=== PATIENT | male | born 1940 | race Caucasian/White ===

== ENCOUNTER 2016-04-30 10:40 | Inpatient (IN) | payer OTHER, BC ==
[~2016-04-30] VITALS: Ht 185.4 cm; Wt 102.5 kg
[2016-04-30] VITALS (18 sets, daily range): BP systolic 107–163; BP diastolic 63–109
[~2016-04-30 10:40] MED LIST: "\\\"STATIN\\\""; AMBIEN10 M1 PO; COUMADIN,JANTOVE2 MG PO; ENDOCET 7.5-321 EACH PO; HYDROCHLOROTHIA25 MG PO; LANOXIN,DIGIT0.25 MG PO; LEVOTHYROXINE125 MCG PO; LYRICA; METFORMIN HCL500 M1 PO; PANTOPRAZOLE SO40 MG PO; PRADAXA75 MG PO; PRAVASTATIN SOD40 MG PO; PREDNISONE10 M1 PO; PROTONIX40 MG PO; TOPROL XL100 MG PO; TRAMADOL HCL50 MG PO; VALIUM5 MG PO; XARELTO20 MG PO
[2016-04-30 12:12] LABS: HEMATOCRIT 21.5 % (38.0-50.0); MCH 24.9 PG (29.0-34.0); MCHC 29.8 G/DL (30.0-36.0); MCV 83.7 FL (86-99); MEAN PLAT.VOLUME 9.5 uM^3 (9.0-12.4); PLATELET COUNT 291 K/uL (156-360); RBC DIS.WIDTH-CV 15.3 % (11.8-14.6); RBC DIS.WIDTH-SD 44.2 % (39-53); RED BLOOD COUNT 2.57 M/uL (4.00-5.50); WHITE BLOOD COUNT 7.1 K/uL (4.1-10.2)
[2016-04-30 12:13] LABS: CHLORIDE 113 mEq/L (99-109); POTASSIUM 4.3 mEq/L (3.7-5.4); SODIUM 143 mEq/L (136-147)
[2016-04-30 12:14] LABS: GLUCOSE 81 mg/dL (70-99)
[2016-04-30 12:18] LABS: GFR ESTIMATE (CALCULATED) > 59 mL/min/
[2016-04-30 12:19] LABS: UREA NITROGEN (BUN) 20 mg/dL (9-23)
[2016-04-30 12:22] LABS: ANION GAP 9 MEQ/L (2-14)
[2016-04-30 12:24] LABS: TOTAL BILIRUBIN 0.5 mg/dL (0.0-1.0)
[2016-04-30 12:25] LABS: ALKALINE PHOSPHATASE 77 IU/L (3-129)
[2016-04-30 12:43] LABS: TROP-I INTERPRETATION NEGATIVE; TROPONIN-I < 0.01 ng/mL (0.0-0.30)
[2016-04-30 13:40] LABS: MCH 24.1 PG (29.0-34.0); MCHC 29.1 G/DL (30.0-36.0); MCV 82.7 FL (86-99); PLATELET COUNT 314 K/uL (156-360); RBC DIS.WIDTH-CV 15.4 % (11.8-14.6); RBC DIS.WIDTH-SD 43.9 % (39-53); RED BLOOD COUNT 2.66 M/uL (4.00-5.50); WHITE BLOOD COUNT 7.9 K/uL (4.1-10.2)
[2016-04-30] MEDS ORDERED: TOPROL XL50 MG PO (15:11)
[2016-04-30] MEDS ORDERED: GLIMEPIRIDE1 MG PO (15:13)
[2016-04-30] MEDS ORDERED: IRON325 M1 PO (15:14)
[2016-04-30] MEDS ORDERED: POTASSIUM CITR10 MEQ PO (15:14)
[2016-04-30] MEDS ORDERED: FUROSEMIDE20 MG PO (15:14)
[2016-04-30] MEDS ORDERED: CYANOCOBALAM1000 MCG PO (15:15)
[2016-04-30] MEDS ORDERED: ASCORBIC ACID500 M3 PO (15:15)
[2016-04-30] MEDS ORDERED: ASPIR 8181 M1 PO (15:15)
[2016-04-30 20:47] LABS: HEMATOCRIT 22.3 % (38.0-50.0)
[2016-04-30 21:11] LABS: POINT-OF-CARE METER ID UU13113698
[2016-05-01] VITALS (10 sets, daily range): BP systolic 99–136; BP diastolic 55–69
[2016-05-01 05:30] LABS: HEMATOCRIT 26.3 % (38.0-50.0); MCH 25.9 PG (29.0-34.0); MCHC 31.2 G/DL (30.0-36.0); MEAN PLAT.VOLUME 9.6 uM^3 (9.0-12.4); PLATELET COUNT 257 K/uL (156-360); RBC DIS.WIDTH-CV 15.7 % (11.8-14.6); RBC DIS.WIDTH-SD 47.1 % (39-53); RED BLOOD COUNT 3.17 M/uL (4.00-5.50); WHITE BLOOD COUNT 7.3 K/uL (4.1-10.2)
[2016-05-01 09:35] LABS: HEMATOCRIT 26.9 % (38.0-50.0); MCV 82.5 FL (86-99)
[2016-05-01 11:47] LABS: POINT-OF-CARE METER ID UU14174216
[2016-05-01 16:16] LABS: ANION GAP 9 MEQ/L (2-14); CHLORIDE 100 MEQ/L (99-109); GFR ESTIMATE (CALCULATED) 48 mL/min/; SAMPLE HEMOLYSIS CHECK 2; SAMPLE ICTERIC CHECK 0; SAMPLE LIPEMIA CHECK 0; SODIUM 137 MEQ/L (136-147); UREA NITROGEN (BUN) 23 mg/dL (9-23)
[2016-05-01 16:28] LABS: GLUCOSE 113 mg/dL (70-99)
[2016-05-01 17:13] LABS: POINT-OF-CARE METER ID UU14174216
[2016-05-01 20:15] LABS: HEMATOCRIT 27.2 % (38.0-50.0); MCV 82.7 FL (86-99)
[2016-05-02 03:53] VITALS: BP 102/55
[2016-05-02 06:49] LABS: MCH 25.4 PG (29.0-34.0); MCHC 30.7 G/DL (30.0-36.0); MCV 82.6 FL (86-99); MEAN PLAT.VOLUME 9.6 uM^3 (9.0-12.4); PLATELET COUNT 234 K/uL (156-360); RBC DIS.WIDTH-CV 16.2 % (11.8-14.6); RBC DIS.WIDTH-SD 48.5 % (39-53); RED BLOOD COUNT 3.39 M/uL (4.00-5.50); WHITE BLOOD COUNT 6.4 K/uL (4.1-10.2)
[2016-05-02 07:02] VITALS: BP 117/58
[2016-05-02 07:08] LABS: ANION GAP 10 MEQ/L (2-14); CHLORIDE 102 MEQ/L (99-109); GFR ESTIMATE (CALCULATED) 52 mL/min/; GLUCOSE 104 mg/dL (70-99); POTASSIUM 3.8 MEQ/L (3.7-5.4); SAMPLE HEMOLYSIS CHECK 0; SAMPLE ICTERIC CHECK 0; SAMPLE LIPEMIA CHECK 0; SODIUM 139 MEQ/L (136-147); UREA NITROGEN (BUN) 24 mg/dL (9-23)
[2016-05-02 07:48] LABS: POINT-OF-CARE METER ID UU13113781
[2016-05-02 11:34] VITALS: BP 112/51
[2016-05-02 15:23] VITALS: BP 118/57
[2016-05-02 20:00] VITALS: BP 117/59
[2016-05-02 23:31] VITALS: BP 108/49
[2016-05-03] VITALS (7 sets, daily range): BP systolic 108–152; BP diastolic 55–82
[2016-05-03 06:47] LABS: HEMATOCRIT 29.6 % (38.0-50.0); MCH 25.5 PG (29.0-34.0); MCHC 30.4 G/DL (30.0-36.0); MCV 83.9 FL (86-99); MEAN PLAT.VOLUME 9.8 uM^3 (9.0-12.4); PLATELET COUNT 214 K/uL (156-360); RBC DIS.WIDTH-CV 16.4 % (11.8-14.6); RBC DIS.WIDTH-SD 49.6 % (39-53); RED BLOOD COUNT 3.53 M/uL (4.00-5.50); WHITE BLOOD COUNT 6.6 K/uL (4.1-10.2)
[2016-05-03 07:16] LABS: ANION GAP 10 MEQ/L (2-14); CHLORIDE 102 MEQ/L (99-109); GFR ESTIMATE (CALCULATED) 52 mL/min/; GLUCOSE 101 mg/dL (70-99); POTASSIUM 3.9 MEQ/L (3.7-5.4); SAMPLE HEMOLYSIS CHECK 0; SAMPLE ICTERIC CHECK 0; SAMPLE LIPEMIA CHECK 0; SODIUM 140 MEQ/L (136-147); UREA NITROGEN (BUN) 26 mg/dL (9-23)
[2016-05-03 12:02] LABS: POC NON-PRINT COM 1 ND
[2016-05-03 13:05] LABS: POINT-OF-CARE METER ID UU13113698
[2016-05-03 16:20] LABS: POINT-OF-CARE METER ID UU13113781
[2016-05-04 04:54] VITALS: BP 141/73
[2016-05-04 06:47] LABS: HEMATOCRIT 29.4 % (38.0-50.0); MCH 24.5 PG (29.0-34.0); MCHC 29.3 G/DL (30.0-36.0); MCV 83.8 FL (86-99); RBC DIS.WIDTH-CV 16.1 % (11.8-14.6); RBC DIS.WIDTH-SD 49.1 % (39-53); RED BLOOD COUNT 3.51 M/uL (4.00-5.50); WHITE BLOOD COUNT 5.8 K/uL (4.1-10.2)
[2016-05-04 07:00] VITALS: BP 140/78
[2016-05-04 07:13] LABS: ANION GAP 9 MEQ/L (2-14); CHLORIDE 106 MEQ/L (99-109); GFR ESTIMATE (CALCULATED) > 59 mL/min/; GLUCOSE 98 mg/dL (70-99); SAMPLE HEMOLYSIS CHECK 0; SAMPLE ICTERIC CHECK 0; SAMPLE LIPEMIA CHECK 0; SODIUM 140 MEQ/L (136-147); UREA NITROGEN (BUN) 20 mg/dL (9-23)
[2016-05-04 07:44] LABS: MEAN PLAT.VOLUME 9.5 uM^3 (9.0-12.4); PLATELET COUNT 196 K/uL (156-360)
[2016-05-04 08:00] LABS: POINT-OF-CARE USER ID ENVKC36
[2016-05-04 09:27] LABS: POINT-OF-CARE METER ID UU13113781
[2016-05-04 11:11] VITALS: BP 127/68
[2016-05-04 12:16] LABS: POINT-OF-CARE METER ID UU14174216; POINT-OF-CARE USER ID ENVKC36
[2016-05-04 14:58] LABS: POINT-OF-CARE METER ID UU13113819
[2016-05-04 15:41] VITALS: BP 130/72
[2016-05-04] MEDS ORDERED: METOPROLOL SUCC25 MG PO (15:57)
== END 2016-05-04 17:05 | disposition home or self-care (01) | DRG 378 ==
LOC: EME 10:40 → EDOF 17:18 → 4EAST 17:18
PROVIDERS: Emergency Medicine; Hospitalist; Internal Medicine; Physician Assistant
PROC: 30233N1 Transfusion of Nonautologous Red Blood Cells into Peripheral Vein, Percutaneous Approach (ICD-10-PCS; principal; 2016-04-30)
DX: K92.2 Gastrointestinal hemorrhage, unspecified (principal); D62 Acute posthemorrhagic anemia; J98.11 Atelectasis; I50.9 Heart failure, unspecified; I48.2 Chronic atrial fibrillation; I10 Essential (primary) hypertension; E78.5 Hyperlipidemia, unspecified; E11.9 Type 2 diabetes mellitus without complications; I71.4 Abdominal aortic aneurysm, without rupture
CPT/HCPCS: 71020; 71275; 74174; 80048; 80053; 82272; 82948; 83880; 84484; 85014; 85018; 85027; 86850; 86870; 86900; 86901; 86905; 86920; 88305; 93005; 93306; 99281; 99285; C9113; J1815; J1940; J2250; J3010; P9016

== ENCOUNTER 2016-05-31 18:31 | Inpatient (IN) | payer OTHER, BC ==
[~2016-05-31] VITALS: Ht 185.4 cm; Wt 102.0 kg
[~2016-05-31 18:31] MED LIST changes: +ASCORBIC ACID500 M3 PO; +ASPIR 8181 M1 PO; +CYANOCOBALAM1000 MCG PO; +FUROSEMIDE20 MG PO; +GLIMEPIRIDE1 MG PO; +IRON325 M1 PO; +METOPROLOL SUCC25 MG PO; +POTASSIUM CITR10 MEQ PO; +TOPROL XL50 MG PO
[2016-05-31 19:21] LABS: CHLORIDE 111 mEq/L (99-109); POTASSIUM 3.8 mEq/L (3.7-5.4); SODIUM 141 mEq/L (136-147)
[2016-05-31 19:23] LABS: GLUCOSE 80 mg/dL (70-99)
[2016-05-31 19:24] LABS: ANION GAP 10 MEQ/L (2-14)
[2016-05-31 19:27] LABS: GFR ESTIMATE (CALCULATED) > 59 mL/min/
[2016-05-31 19:28] LABS: HEMATOCRIT 27.1 % (38.0-50.0); MCH 21.8 PG (29.0-34.0); MCHC 28.4 G/DL (30.0-36.0); MEAN PLAT.VOLUME 9.4 uM^3 (9.0-12.4); PLATELET COUNT 271 K/uL (156-360); RBC DIS.WIDTH-CV 18.1 % (11.8-14.6); RED BLOOD COUNT 3.53 M/uL (4.00-5.50); UREA NITROGEN (BUN) 16 mg/dL (9-23); WHITE BLOOD COUNT 7.3 K/uL (4.1-10.2)
[2016-05-31 19:29] LABS: MCV 76.8 FL (86-99)
[2016-05-31] MEDS ORDERED: LO-DOSE ASPIRIN81 M1 PO (20:22)
[2016-05-31] MEDS ORDERED: XARELTO20 MG PO (20:22)
[2016-05-31 21:08] LABS: INTER. NORMALIZED RATIO 1.3; PROTHROMBIN TIME 13.5 (9.2-11.2); PTT 32.2 (25-32)
[2016-05-31 21:09] LABS: TOTAL BILIRUBIN 0.7 mg/dL (0.0-1.0)
[2016-05-31 21:10] LABS: ALKALINE PHOSPHATASE 100 IU/L (3-129)
[2016-05-31 21:12] LABS: DIRECT BILIRUBIN 0.4 mg/dL (0.0-0.3)
[2016-05-31 21:13] LABS: LIPASE 63 U/L (1.0-51.0)
[2016-05-31] MEDS ORDERED: VITAMIN C250 MG PO (22:16)
[2016-06-01] VITALS (13 sets, daily range): BP systolic 132–175; BP diastolic 59–87
[2016-06-01 02:30] LABS: TROP-I INTERPRETATION NEGATIVE; TROPONIN-I < 0.01 ng/mL (0.0-0.30)
[2016-06-01 08:36] LABS: HEMATOCRIT 26.4 % (38.0-50.0); MCV 77.2 FL (86-99)
[2016-06-01 09:01] LABS: ALKALINE PHOSPHATASE 91 IU/L (3-129); ANION GAP 9 MEQ/L (2-14); CHLORIDE 110 MEQ/L (99-109); GFR ESTIMATE (CALCULATED) > 59 mL/min/; GLUCOSE 74 mg/dL (70-99); POTASSIUM 3.7 MEQ/L (3.7-5.4); SAMPLE HEMOLYSIS CHECK 0; SAMPLE ICTERIC CHECK 0; SAMPLE LIPEMIA CHECK 0; SODIUM 141 MEQ/L (136-147); TOTAL BILIRUBIN 1.1 MG/DL (0.0-1.0); UREA NITROGEN (BUN) 14 mg/dL (9-23)
[2016-06-01 09:03] LABS: TROP-I INTERPRETATION NEGATIVE; TROPONIN-I 0.01 ng/mL (0.0-0.30)
[2016-06-01 14:45] LABS: MCV 77.3 FL (86-99)
[2016-06-01 14:51] LABS: TROP-I INTERPRETATION NEGATIVE; TROPONIN-I 0.01 ng/mL (0.0-0.30)
[2016-06-02 00:38] LABS: MCV 76.3 FL (86-99)
[2016-06-02 04:00] VITALS: BP 172/80
[2016-06-02 07:51] VITALS: BP 162/72
[2016-06-02 11:21] VITALS: BP 138/65
[2016-06-02 16:53] VITALS: BP 165/88
[2016-06-02 19:07] VITALS: BP 155/65
[2016-06-02 23:36] VITALS: BP 125/59
[2016-06-03 04:29] VITALS: BP 121/74
[2016-06-03 05:54] LABS: HEMATOCRIT 29.4 % (38.0-50.0); MCH 23.1 PG (29.0-34.0); MCHC 29.6 G/DL (30.0-36.0); MEAN PLAT.VOLUME 9.9 uM^3 (9.0-12.4); PLATELET COUNT 196 K/uL (156-360); RBC DIS.WIDTH-CV 18.4 % (11.8-14.6); RED BLOOD COUNT 3.77 M/uL (4.00-5.50); WHITE BLOOD COUNT 5.7 K/uL (4.1-10.2)
[2016-06-03 06:37] LABS: ALKALINE PHOSPHATASE 79 IU/L (3-129); ANION GAP 11 MEQ/L (2-14); CHLORIDE 104 MEQ/L (99-109); GFR ESTIMATE (CALCULATED) 57 mL/min/; POTASSIUM 3.4 MEQ/L (3.7-5.4); SAMPLE HEMOLYSIS CHECK 0; SAMPLE ICTERIC CHECK 0; SAMPLE LIPEMIA CHECK 0; SODIUM 143 MEQ/L (136-147); TOTAL BILIRUBIN 0.9 MG/DL (0.0-1.0); UREA NITROGEN (BUN) 13 mg/dL (9-23)
[2016-06-03 06:40] LABS: GLUCOSE 121 mg/dL (70-99)
[2016-06-03 08:00] VITALS: BP 141/68
[2016-06-03] MEDS ORDERED: LISINOPRIL2.5 MG PO (09:56)
[2016-06-03] MEDS ORDERED: ELIQUIS5 MG PO (11:30)
== END 2016-06-03 13:16 | disposition home or self-care (01) | DRG 811 ==
LOC: EME 18:31 → 4EAST 06-01 01:00 → EDOF 06-01 01:00 → 4EAST 06-01 02:02
PROVIDERS: Emergency Medicine; Internal Medicine; Nurse Practitioner Family
DX: D62 Acute posthemorrhagic anemia (principal); I50.33 Acute on chronic diastolic (congestive) heart failure; K92.2 Gastrointestinal hemorrhage, unspecified; K92.1 Melena; G47.30 Sleep apnea, unspecified; I10 Essential (primary) hypertension; K21.9 Gastro-esophageal reflux disease without esophagitis; K64.8 Other hemorrhoids; K31.7 Polyp of stomach and duodenum; K57.30 Diverticulosis of large intestine without perforation or abscess without bleeding; E87.70 Fluid overload, unspecified; E78.5 Hyperlipidemia, unspecified; I48.2 Chronic atrial fibrillation; E11.9 Type 2 diabetes mellitus without complications; R06.00 Dyspnea, unspecified; I45.10 Unspecified right bundle-branch block; Z86.718 Personal history of other venous thrombosis and embolism; Z87.891 Personal history of nicotine dependence; Z79.82 Long term (current) use of aspirin; Z79.4 Long term (current) use of insulin; Z88.8 Allergy status to other drugs, medicaments and biological substances
CPT/HCPCS: 71010; 74176; 80048; 80053; 80076; 81003; 83690; 84484; 85014; 85018; 85027; 85610; 85730; 86850; 86900; 86901; 86905; 86920; 88305; 93005; 94799; 99281; 99285; C9113; J1940; J2250; J3010; J7030; P9016

== ENCOUNTER 2016-09-03 18:20 | Emergency (ER) | payer OTHER, BC ==
[~2016-09-03] VITALS: Ht 185.4 cm; Wt 104.6 kg
[~2016-09-03 18:20] MED LIST changes: +ELIQUIS5 MG PO; +LISINOPRIL2.5 MG PO; +LO-DOSE ASPIRIN81 M1 PO; +VITAMIN C250 MG PO
[2016-09-03] MEDS ORDERED: PERCOCET 5/31 TABLET PO (22:06)
[2016-09-03] MEDS ORDERED: FLEXERIL10 MG PO (22:06)
[2016-09-03 22:18] VITALS: BP 108/77
== END 2016-09-03 22:21 | disposition home or self-care (01) ==
LOC: EME 18:20
DX: S42.252A Displaced fracture of greater tuberosity of left humerus, initial encounter for closed fracture (principal); W01.0XXA Fall on same level from slipping, tripping and stumbling without subsequent striking against object, initial encounter; Y93.01 Activity, walking, marching and hiking; E11.9 Type 2 diabetes mellitus without complications; I10 Essential (primary) hypertension; E78.5 Hyperlipidemia, unspecified; K21.9 Gastro-esophageal reflux disease without esophagitis; Z87.891 Personal history of nicotine dependence; Z79.82 Long term (current) use of aspirin; Z87.442 Personal history of urinary calculi; Z79.84 Long term (current) use of oral hypoglycemic drugs
CPT/HCPCS: 73030; 99281; 99284

== ENCOUNTER 2017-07-28 06:53 | Emergency (ER) | payer BC, OTHER ==
[~2017-07-28] VITALS: Ht 188 cm; Wt 112.9 kg
[~2017-07-28 06:53] MED LIST changes: +FLEXERIL10 MG PO; +PERCOCET 5/31 TABLET PO
[2017-07-28 07:39] LABS: HEMATOCRIT 41.8 % (38.0-50.0); HEMOGLOBIN 12.4 G/DL (12.5-16.6); MCH 24.8 PG (29.0-34.0); MCHC 29.7 G/DL (30.0-36.0); MCV 83.4 FL (86-99); PLATELET COUNT 129 K/uL (156-360); RED BLOOD COUNT 5.01 M/uL (4.00-5.50); WHITE BLOOD COUNT 8.1 K/uL (4.1-10.2)
[2017-07-28 08:03] LABS: INTER. NORMALIZED RATIO 1.4
[2017-07-28 08:48] LABS: CHLORIDE 109 MEQ/L (99-109); CREATININE 1.1 MG/DL (0.6-1.3); GFR ESTIMATE (CALCULATED) > 59 mL/min/ (58.99-99999); GLUCOSE 134 mg/dL (70-99); POTASSIUM 4.4 MEQ/L (3.7-5.4); SODIUM 142 MEQ/L (136-147); UREA NITROGEN (BUN) 18 mg/dL (9-23)
[2017-07-28 08:55] LABS: BASOPHIL (%) 1.1 % (0-1); BASOPHIL COUNT 0.1 K/uL (0-0.1); EOSINOPHIL (%) 3.8 % (0-5); EOSINOPHIL COUNT 0.3 K/uL (0-0.3); IMMATURE GRANULOCYTE (%) 0.5 % (0.0-0.7); LYMPHOCYTE (%) 9.9 % (15-42); LYMPHOCYTE COUNT 0.8 K/uL (1.0-2.8); MONOCYTE (%) 8.3 % (3-12); MONOCYTE COUNT 0.7 K/uL (0-0.8); NEUTROPHIL (%) 76.4 % (45-76); NEUTROPHIL COUNT 6.2 K/uL (1.8-6.4)
[2017-07-28] MEDS ORDERED: MOTRIN800 MG PO (10:24)
[2017-07-28] MEDS ORDERED: FLEXERIL10 MG PO (10:24)
[2017-07-28 10:37] VITALS: BP 126/92
== END 2017-07-28 10:38 | disposition home or self-care (01) ==
LOC: EME 06:53
PROVIDERS: Emergency Medicine
DX: S13.9XXA Sprain of joints and ligaments of unspecified parts of neck, initial encounter (principal); R51 Headache; I10 Essential (primary) hypertension; I48.91 Unspecified atrial fibrillation; Z79.01 Long term (current) use of anticoagulants; Z79.82 Long term (current) use of aspirin; E11.9 Type 2 diabetes mellitus without complications; Z79.84 Long term (current) use of oral hypoglycemic drugs; X58.XXXA Exposure to other specified factors, initial encounter
CPT/HCPCS: 70450; 70498; 80048; 85025; 85610; 99281; 99284; J1885; J2060; J7030